=== PATIENT | male | born 1985 | race Caucasian/White ===

== ENCOUNTER 2020-10-22 22:32 | Emergency (ER) | payer SELFPAY ==
[~2020-10-22] VITALS: Ht 188 cm; Wt 81.7 kg
[2020-10-22] MEDS ORDERED: Veetids 500500 MG PO (23:15)
[2020-10-22] MEDS ORDERED: IBU600 MG PO (23:15)
== END 2020-10-22 23:25 | disposition home or self-care (01) ==
LOC: ER 22:32
DX: K08.89 Other specified disorders of teeth and supporting structures (principal)
CPT/HCPCS: 99282; A9270

== ENCOUNTER 2021-01-04 14:06 | Emergency (ER) | payer SELFPAY ==
[~2021-01-04 14:06] MED LIST: IBU600 MG PO; Veetids 500500 MG PO
== END 2021-01-04 14:13 | disposition left against medical advice (07) ==
LOC: ER 14:06
DX: Z53.21 Procedure and treatment not carried out due to patient leaving prior to being seen by health care provider (principal)